=== PATIENT | female | born 1985 | race Caucasian/White ===

== ENCOUNTER → 2018-11-01 | Outpatient (CLI) | payer OTHER | END | disposition home or self-care (01) | LOC: CFH 07:26 | PROVIDERS: ATTEND Obstetrics & Gynecology | DX: N63.20 Unspecified lump in the left breast, unspecified quadrant (principal) | CPT/HCPCS: 76641; 77066; G0279 ==

== ENCOUNTER 2018-11-24 12:00 | Outpatient (CLI) | payer OTHER ==
[2018-11-24] MEDS ORDERED: SODIUM BICARBONATE 4.0%, 5ML ONE (13:24)
[2018-11-24] MEDS ORDERED: LIDOCAINE 1%-EPI 1:100K, 20ML ONE (13:24)
== END 2018-11-24 23:59 | disposition home or self-care (01) ==
LOC: CFH 12:00
PROVIDERS: ATTEND Obstetrics & Gynecology
DX: D24.2 Benign neoplasm of left breast (principal)
CPT/HCPCS: 19083; 88305; J3490